=== PATIENT | male | born 1985 | race Caucasian/White ===

== ENCOUNTER 2016-11-13 14:11 | Emergency (ER) | payer OTHER ==
[2016-11-13] MEDS ORDERED: IBUPROFEN 800 MG TAB As Ordered ONE (14:54)
--- NOTE | 2016-11-13 15:26 | EDDOCDS ---
Physician Documentation [facility] Name: Osbaldo Leiva Age: 31 yrs Sex: Male : 1985 Arrival Date: 11/13/2016 Time: 14:11 Bed TR7 Private MD: Kiko Jensen Disposition: 11/13/16 15:12 Discharged to Home/Self Care. Impression: Acute pharyngitis. - Condition is Stable. - Discharge Instructions: Pharyngitis, Salt Water Gargle. - Prescriptions for Ibuprofen 600 mg Oral Tablet - take 1 tablet by ORAL route every 6 hours As needed take with food; 30 tablet. - Medication Reconciliation, Local Pharmacy Hours form. - Follow up: Kiko Jensen PA; When: As needed; Reason: Recheck today's complaints, Continuance of care. Follow up: Emergency Department; When: As needed; Reason: Fever > 102F, Trouble breathing. - Problem is new. - Symptoms are unchanged. Historical: - Allergies: No known drug Allergies; - Home Meds: 1. none - PMHx: none; - PSHx: none; - Social history: Smoking status: Patient states was never smoker of tobacco. No barriers to communication noted, The patient speaks fluent Bulgarian, Speaks appropriately for age. - Family history: Not pertinent. - : The pt / caregiver states he / she is not on anticoagulants. Home medication list is obtained from the patient. - Exposure Risk Screening:: None identified. Vital Signs: 11/13 14:13 BP 157 / 95; Pulse 97; Resp 16; Temp 97.6(O); Pulse Ox 98% ; Weight 145.15 kg / 320 cmb lbs; Height 6 ft. 1 in. (185.42 cm); Pain 8/10; 14:13 Body Mass Index 42.22 (145.15 kg, 185.42 cm) cmb MDM: 14:49 Strep Screen, Nursing ordered. ar2 14:49 Ibuprofen 800 mg PO once ordered. ar2 15:08 Financial registration complete. lg 15:12 GATS (NEGATIVE STREP SCREEN) Ordered. EDMS Administered Medications: 14:59 Drug: Ibuprofen 800 mg [ibuprofen 800 mg tablet (1 tabs)] Route: PO; jf3 Signatures: Dispatcher [employer] EDMS Nathan Hay, Nigel Reg Stepan Valdes, RN RN dy Yogesh Hutchins PA-C PA-C ar2 Linda Ely, RN RN ttb Robert Phan RN jf3 MTDD
--- NOTE | 2016-11-13 15:26 | EDDOCDS ---
Nurse's Notes [facility] Name: Osbaldo Leiva Age: 31 yrs Sex: Male : 1985 Arrival Date: 11/13/2016 Time: 14:11 Bed TR7 Private MD: Kiko Jensen Diagnosis: Acute pharyngitis Presentation: 11/13 14:18 Presenting complaint: Patient states: not feeling well yesterday then developed a sore dy throat and headache. painful to swallow. Risk factors: Stridor is not present. Drooling is not present. Shortness of breath is not present. Cellulitis is not present. Adult Sepsis Screening: The patient does not have new or worsening altered mentation. Patient's respiratory rate is less than 22. Systolic blood pressure is greater than 100. Patient has a qSOFA score of 0- Negative Sepsis Screen. Suicide/Homicide risk assessment- the patient denies having any suicidal and/or homicidal ideations and does not present with any other emotional, behavioral or mental health complaints. 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 Transition of care: patient was not received from another setting of care. 14:18 Acuity: NI Level 4 dy 14:18 Method Of Arrival: Walkin/Carried/Asstd dy Triage Assessment: 14:19 General: Appears in no apparent distress. Pain: Location: throat Pain currently is 8 dy out of 10 on a pain scale. Pt Declines HIV testing. EENT: Reports pain when swallowing. Historical: - Allergies: No known drug Allergies; - Home Meds: 1. none - PMHx: none; - PSHx: none; - Social history: Smoking status: Patient states was never smoker of tobacco. No barriers to communication noted, The patient speaks fluent Frisian, Speaks appropriately for age. - Family history: Not pertinent. - : The pt / caregiver states he / she is not on anticoagulants. Home medication list is obtained from the patient. - Exposure Risk Screening:: None identified. Screenin:24 Screening information is obtained from the patient. Fall risk: No risks identified. ttb Assistance ADL's: requires no assistance with activities of daily living. Abuse/DV Screen: The patient / caregiver reports he/she is: not in a situation that causes fear, pain or injury. Nutritional screening: No deficits noted. Advance Directives: Currently, there is no health care proxy. home support is adequate. Assessment: 15:24 General: Appears in no apparent distress, well nourished, well groomed, Behavior is ttb appropriate for age, cooperative, pleasant. Pain: Location: throat. Neurological: Level of Consciousness is awake, alert, Oriented to person, place, time. EENT: Throat is clear. Cardiovascular: Chest pain is denied. Respiratory: Airway is patent Respiratory effort is even, unlabored, Denies shortness of breath. GI: Denies nausea, vomiting. Derm: Skin is normal. Vital Signs: 14:13 BP 157 / 95; Pulse 97; Resp 16; Temp 97.6(O); Pulse Ox 98% ; Weight 145.15 kg; Height 6 cmb ft. 1 in. (185.42 cm); Pain 8/10; 14:13 Body Mass Index 42.22 (145.15 kg, 185.42 cm) cmb Vitals: 14:13 Log In Time: November 13, 2016 at 14:11. cmb ED Course: 14:12 Patient visited by Alethea Ghotra. cmb 14:12 Patient moved to Waiting cmb 14:13 Kiko Jensen PA is Private Physician. cmb 14:14 Patient moved to Pre RCE cmb 14:19 Triage Initiated dy 14:43 Patient moved to Triage 2 mlb1 14:46 [facility] ar2 14:46 Lillie Bertrand MD is Attending Physician. ar2 14:46 Patient visited by Yogesh Hutchins PA-C. ar2 15:12 Kiko Jensen PA is Referral Physician. ar2 15:23 Patient moved to TR7 ttb 15:24 The patient / caregiver is instructed regarding the plan of care and ED course. Patient ttb has correct armband on for positive identification. 15:24 GATS (NEGATIVE STREP SCREEN) Sent. ttb 15:24 No IV's were initiated during this patient's visit. No procedures done that require ttb assistance. Strep culture sent to lab. Administered Medications: 14:59 Drug: Ibuprofen 800 mg [ibuprofen 800 mg tablet (1 tabs)] Route: PO; jf3 Order Results: There are currently no results for this order. Outcome: 15:12 Discharge ordered by Provider. ar2 15:24 Discharge Assessment: Patient awake, alert and oriented x 3. No cognitive and/or ttb functional deficits noted. Patient verbalized understanding of disposition instructions. Patient awake and alert. patient administered narcotics - no. The following High Risk Discharge criteria are identified: None. Discharged to home ambulatory. Condition: good Condition: stable Condition: improved. Discharge instructions given to patient, Instructed on discharge instructions, follow up and referral plans. medication usage, Demonstrated understanding of instructions, medications, Pt was receptive of discharge instructions/ teaching. Prescriptions given X 1. No special radiology studies were completed. Property :Personal belongings accompany Pt. 15:25 Patient left the ED. ttb Signatures: Stepan Forde, RN RN dy Alec Sheets RN RN mlb1 Yogesh Hutchins PA-C PACasC ar2 Alethea Ghotra Teresa RN RN ttb Robert Phan,RN RN jf3 LEÓN
--- NOTE | 2016-11-15 16:26 | EDDOCDS ---
Physician Documentation [facility] Name: Osbaldo Leiva Age: 31 yrs Sex: Male : 1985 Arrival Date: 11/13/2016 Time: 14:11 Bed TR7 Private MD: Kiko Jensen Disposition: 11/13/16 15:12 Discharged to Home/Self Care. Impression: Acute pharyngitis. - Condition is Stable. - Discharge Instructions: Pharyngitis, Salt Water Gargle. - Prescriptions for Ibuprofen 600 mg Oral Tablet - take 1 tablet by ORAL route every 6 hours As needed take with food; 30 tablet. - Medication Reconciliation, Local Pharmacy Hours form. - Follow up: Kiko Jensen PA; When: As needed; Reason: Recheck today's complaints, Continuance of care. Follow up: Emergency Department; When: As needed; Reason: Fever > 102F, Trouble breathing. - Problem is new. - Symptoms are unchanged. Historical: - Allergies: No known drug Allergies; - Home Meds: 1. none - PMHx: none; - PSHx: none; - Social history: Smoking status: Patient states was never smoker of tobacco. No barriers to communication noted, The patient speaks fluent [place], Speaks appropriately for age. - Family history: Not pertinent. - : The pt / caregiver states he / she is not on anticoagulants. Home medication list is obtained from the patient. - Exposure Risk Screening:: None identified. Vital Signs: 11/13 14:13 BP 157 / 95; Pulse 97; Resp 16; Temp 97.6(O); Pulse Ox 98% ; Weight 145.15 kg / 320 cmb lbs; Height 6 ft. 1 in. (185.42 cm); Pain 8/10; 14:13 Body Mass Index 42.22 (145.15 kg, 185.42 cm) cmb MDM: 14:49 Strep Screen, Nursing ordered. ar2 14:49 Ibuprofen 800 mg PO once ordered. ar2 15:08 Financial registration complete. lg 15:12 GATS (NEGATIVE STREP SCREEN) Ordered. EDMS 11/14 07:47 [facility] Payment Agreement was scanned into [employer] and attached to record. lg 11:52 T-Sheet-- Draft Copy was scanned into [employer] and attached to record. gb Administered Medications: 11/13 14:59 Drug: Ibuprofen 800 mg [ibuprofen 800 mg tablet (1 tabs)] Route: PO; jf3 Signatures: Dispatcher [employer] EDAshlee Cueva, Reg Reg gb Nathan Hay, Reg Reg lg Stepan Forde, RN RN Yogesh Sánchez PA-C PA-C ar2 Conner, Teresa, RN RN ttb Robert Phan RN jf3 The chart was reviewed and I authenticate all verbal orders and agree with the evaluation and treatment provided.Attachments: 11/14 07:47 [facility] Payment Agreement lg 11:52 T-Sheet-- Draft Copy gb Chart Complete MTDD
--- NOTE | 2016-11-15 16:26 | EDDOCDS ---
Nurse's Notes [facility] Name: Osbaldo Leiva Age: 31 yrs Sex: Male : 1985 Arrival Date: 11/13/2016 Time: 14:11 Bed TR7 Private MD: Kiko Jensen Diagnosis: Acute pharyngitis Presentation: 11/13 14:18 Presenting complaint: Patient states: not feeling well yesterday then developed a sore dy throat and headache. painful to swallow. Risk factors: Stridor is not present. Drooling is not present. Shortness of breath is not present. Cellulitis is not present. Adult Sepsis Screening: The patient does not have new or worsening altered mentation. Patient's respiratory rate is less than 22. Systolic blood pressure is greater than 100. Patient has a qSOFA score of 0- Negative Sepsis Screen. Suicide/Homicide risk assessment- the patient denies having any suicidal and/or homicidal ideations and does not present with any other emotional, behavioral or mental health complaints. 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 Transition of care: patient was not received from another setting of care. 14:18 Acuity: NI Level 4 dy 14:18 Method Of Arrival: Walkin/Carried/Asstd dy Triage Assessment: 14:19 General: Appears in no apparent distress. Pain: Location: throat Pain currently is 8 dy out of 10 on a pain scale. Pt Declines HIV testing. EENT: Reports pain when swallowing. Historical: - Allergies: No known drug Allergies; - Home Meds: 1. none - PMHx: none; - PSHx: none; - Social history: Smoking status: Patient states was never smoker of tobacco. No barriers to communication noted, The patient speaks fluent Georgian, Speaks appropriately for age. - Family history: Not pertinent. - : The pt / caregiver states he / she is not on anticoagulants. Home medication list is obtained from the patient. - Exposure Risk Screening:: None identified. Screenin:24 Screening information is obtained from the patient. Fall risk: No risks identified. ttb Assistance ADL's: requires no assistance with activities of daily living. Abuse/DV Screen: The patient / caregiver reports he/she is: not in a situation that causes fear, pain or injury. Nutritional screening: No deficits noted. Advance Directives: Currently, there is no health care proxy. home support is adequate. Assessment: 15:24 General: Appears in no apparent distress, well nourished, well groomed, Behavior is ttb appropriate for age, cooperative, pleasant. Pain: Location: throat. Neurological: Level of Consciousness is awake, alert, Oriented to person, place, time. EENT: Throat is clear. Cardiovascular: Chest pain is denied. Respiratory: Airway is patent Respiratory effort is even, unlabored, Denies shortness of breath. GI: Denies nausea, vomiting. Derm: Skin is normal. Vital Signs: 14:13 BP 157 / 95; Pulse 97; Resp 16; Temp 97.6(O); Pulse Ox 98% ; Weight 145.15 kg; Height 6 cmb ft. 1 in. (185.42 cm); Pain 8/10; 14:13 Body Mass Index 42.22 (145.15 kg, 185.42 cm) cmb Vitals: 14:13 Log In Time: November 13, 2016 at 14:11. cmb ED Course: 14:12 Patient visited by Alethea Ghotra. cmb 14:12 Patient moved to Waiting cmb 14:13 Kiko Jensen PA is Private Physician. cmb 14:14 Patient moved to Pre RCE cmb 14:19 Triage Initiated dy 14:43 Patient moved to Triage 2 mlb1 14:46 [facility] ar2 14:46 Lillie Bertrand MD is Attending Physician. ar2 14:46 Patient visited by Yogesh Hutchins PA-C. ar2 15:12 Kiko Jensen PA is Referral Physician. ar2 15:23 Patient moved to TR7 ttb 15:24 The patient / caregiver is instructed regarding the plan of care and ED course. Patient ttb has correct armband on for positive identification. 15:24 GATS (NEGATIVE STREP SCREEN) Sent. ttb 15:24 No IV's were initiated during this patient's visit. No procedures done that require ttb assistance. Strep culture sent to lab. 11/14 07:47 [facility] Payment Agreement was scanned into [employer] and attached to record. lg 11:52 T-Sheet-- Draft Copy was scanned into [employer] and attached to record. gb Administered Medications: 11/13 14:59 Drug: Ibuprofen 800 mg [ibuprofen 800 mg tablet (1 tabs)] Route: PO; jf3 Order Results: Lab Order: GATS (NEGATIVE STREP SCREEN); SPEC'M 11/13/16 15:18 Test: GATS CULTURE (NEG STREP SCR); Value: GATS RESULT NEGATIVE FOR STREP PYOGENES (GROUP A); Status: F Outcome: 15:12 Discharge ordered by Provider. ar2 15:24 Discharge Assessment: Patient awake, alert and oriented x 3. No cognitive and/or ttb functional deficits noted. Patient verbalized understanding of disposition instructions. Patient awake and alert. patient administered narcotics - no. The following High Risk Discharge criteria are identified: None. Discharged to home ambulatory. Condition: good Condition: stable Condition: improved. Discharge instructions given to patient, Instructed on discharge instructions, follow up and referral plans. medication usage, Demonstrated understanding of instructions, medications, Pt was receptive of discharge instructions/ teaching. Prescriptions given X 1. No special radiology studies were completed. Property :Personal belongings accompany Pt. 15:25 Patient left the ED. ttb Signatures: Ashlee Gomez, Reg Reg gb Nathan Hay, Reg Reg lg Stepan Forde RN RN Alec Pathak RN RN mlb1 Yogesh Hutchins PA-C PA-Reyes ar2 Alethea Ghotra Teresa, RN RN ttb Robert Phan RN RN jf3 Chart Complete MTDD
--- NOTE | 2016-11-15 16:26 | EDDOCDS ---
Physician Documentation [facility] Name: Osbaldo Leiva Age: 31 yrs Sex: Male : 1985 Arrival Date: 11/13/2016 Time: 14:11 Bed TR7 Private MD: Kiko Jensen Disposition: 11/13/16 15:12 Discharged to Home/Self Care. Impression: Acute pharyngitis. - Condition is Stable. - Discharge Instructions: Pharyngitis, Salt Water Gargle. - Prescriptions for Ibuprofen 600 mg Oral Tablet - take 1 tablet by ORAL route every 6 hours As needed take with food; 30 tablet. - Medication Reconciliation, Local Pharmacy Hours form. - Follow up: Kiko Jensen PA; When: As needed; Reason: Recheck today's complaints, Continuance of care. Follow up: Emergency Department; When: As needed; Reason: Fever > 102F, Trouble breathing. - Problem is new. - Symptoms are unchanged. Historical: - Allergies: No known drug Allergies; - Home Meds: 1. none - PMHx: none; - PSHx: none; - Social history: Smoking status: Patient states was never smoker of tobacco. No barriers to communication noted, The patient speaks fluent Maldivian, Speaks appropriately for age. - Family history: Not pertinent. - : The pt / caregiver states he / she is not on anticoagulants. Home medication list is obtained from the patient. - Exposure Risk Screening:: None identified. Vital Signs: 11/13 14:13 BP 157 / 95; Pulse 97; Resp 16; Temp 97.6(O); Pulse Ox 98% ; Weight 145.15 kg / 320 cmb lbs; Height 6 ft. 1 in. (185.42 cm); Pain 8/10; 14:13 Body Mass Index 42.22 (145.15 kg, 185.42 cm) cmb MDM: 14:49 Strep Screen, Nursing ordered. ar2 14:49 Ibuprofen 800 mg PO once ordered. ar2 15:08 Financial registration complete. lg 15:12 GATS (NEGATIVE STREP SCREEN) Ordered. EDMS 11/14 07:47 [facility] Payment Agreement was scanned into [employer] and attached to record. lg 11:52 T-Sheet-- Draft Copy was scanned into [employer] and attached to record. gb Administered Medications: 11/13 14:59 Drug: Ibuprofen 800 mg [ibuprofen 800 mg tablet (1 tabs)] Route: PO; jf3 Signatures: Dispatcher [employer] EDAshlee Cueva, Reg Reg gb Nathan Hay, Reg Reg lg Stepan Forde, RN RN Yogesh Sánchez PA-C PA-C ar2 Conner, Teresa, RN RN ttb Robert Phan RN jf3 The chart was reviewed and I authenticate all verbal orders and agree with the evaluation and treatment provided.Attachments: 11/14 07:47 [facility] Payment Agreement lg 11:52 T-Sheet-- Draft Copy gb Chart Complete MTDD
== END 2016-11-13 15:25 | disposition home or self-care (01) ==
LOC: M ED 14:11
DX: J02.9 Acute pharyngitis, unspecified (principal)

== ENCOUNTER 2017-01-16 15:57 | Emergency (ER) | payer OTHER ==
[~2017-01-16] VITALS: Ht 185.4 cm; Wt 145.1 kg
[2017-01-16] MEDS ORDERED: IBUP-1114 PO (16:19)
[2017-01-16] MEDS ORDERED: TIZA2CAP3 (16:21)
[2017-01-16] MEDS ORDERED: KETOROLAC 30 MG/ML VIAL (J1885) IM ONE (19:15)
[2017-01-16 20:55] VITALS: BP 138/84
[2017-01-16] MEDS ORDERED: MOBI7.5T10 PO (21:00)
[2017-01-16] MEDS ORDERED: ZANA4TAB PO (21:01)
--- NOTE | 2017-01-16 21:06 | REP ---
LUMBOSACRAL SPINE: HISTORY: Pain after trauma. COMPARISON: 07/12/2014 FINDINGS: Five views of the lumbosacral spine show no acute fracture, dislocation or subluxation. The intervertebral disc spaces are symmetric and well maintained. There is no spondylolisthesis. The pedicles are intact bilaterally and there is no destructive osseous lesions. IMPRESSION: Unremarkable lumbosacral spine series. There has been no significant change from the prior exam. Signed by Efraín Kidd DO 01/17/2017 11:44 A
== END 2017-01-16 21:09 | disposition home or self-care (01) ==
LOC: M ED 19:38
DX: M54.5 Low back pain (principal)
CPT/HCPCS: 72110; 96372; 99282; J1885

== ENCOUNTER 2017-02-26 08:33 | Outpatient (RCR) | payer OTHER ==
[~2017-02-26 08:33] MED LIST: IBUP-1114 PO; MOBI7.5T10 PO; TIZA2CAP3; ZANA4TAB PO
== END 2017-03-02 ==
LOC: M PT 08:33
PROVIDERS: ATTEND Nurse Practitioner Family
DX: Z51.89 Encounter for other specified aftercare (principal); M54.5 Low back pain

== ENCOUNTER 2017-03-04 10:27 | Emergency (ER) | payer OTHER ==
[~2017-03-04] VITALS: Ht 185.4 cm; Wt 149.7 kg
[2017-03-04 10:27] VITALS: BP 155/92
[2017-03-04] MEDS ORDERED: INDO25CA PO (10:38)
[2017-03-04] MEDS ORDERED: ROBA500T PO (10:38)
[2017-03-04] MEDS ORDERED: PERC5TAB6 PO (10:38)
[2017-03-04] MEDS ORDERED: VALI5TAB PO (10:38)
[2017-03-04] MEDS ORDERED: PERCOCET 5MG/325MG TAB PO ONE (10:45)
== END 2017-03-04 11:00 | disposition home or self-care (01) ==
LOC: M ED 10:59
DX: M51.26 Other intervertebral disc displacement, lumbar region (principal); M51.36 Other intervertebral disc degeneration, lumbar region; G47.33 Obstructive sleep apnea (adult) (pediatric)

== ENCOUNTER 2017-04-01 09:07 | Outpatient (RCR) | payer OTHER ==
[~2017-04-01 09:07] MED LIST changes: +INDO25CA PO; +PERC5TAB6 PO; +ROBA500T PO; +VALI5TAB PO
== END 2017-04-02 ==
LOC: M PT 09:07
PROVIDERS: ATTEND Nurse Practitioner Family
DX: Z51.89 Encounter for other specified aftercare (principal); M54.5 Low back pain

== ENCOUNTER 2017-04-03 09:05 | Outpatient (RCR) | payer OTHER ==
[~2017-04-03 09:05] MED LIST changes: +MOBI4TAB PO; -MOBI7.5T10 PO; +PERC5TAB12 PO; -PERC5TAB6 PO
== END 2017-05-02 | disposition home or self-care (01) ==
LOC: M PT 09:05
PROVIDERS: ATTEND Nurse Practitioner Family
DX: Z51.89 Encounter for other specified aftercare (principal); M54.5 Low back pain

== ENCOUNTER 2017-06-10 12:33 | Emergency (ER) | payer MEDICAID, OTHER, SELFPAY ==
[~2017-06-10] VITALS: Ht 185.4 cm; Wt 162.2 kg
[2017-06-10 14:14] LABS: BASO # 0.1 K/mm3 (0.0-0.2); BASO % 0.8 % (0.0-1.0); EOS # 0.2 K/mm3 (0.0-0.50); EOS % 2.5 % (0.0-3.0); LARGE UNSTAINED CELL # 0.2 K/mm3 (0.0-0.4); LARGE UNSTAINED CELL % 2.4 % (0.0-4.0); LYMPH # 3.6 K/mm3 (1.5-6.5); LYMPH % 38.4 % (24.0-44.0); MEAN CORPUSCULAR HEMOGLOBIN 28.1 pg (27.0-33.0); MEAN CORPUSCULAR HGB CONC 33.9 g/dl (32.0-36.5); MEAN CORPUSCULAR VOLUME 82.9 fl (80.0-96.0); MONO # 0.6 K/mm3 (0.0-0.8); NEUTROPHILS # 4.3 K/mm3 (1.8-7.7); PLATELET COUNT, AUTOMATED 219 k/mm3 (150-450); RED CELL DISTRIBUTION WIDTH 12.8 % (11.5-14.5); WHITE BLOOD COUNT 8.7 K/mm3 (4.0-10.0)
--- NOTE | 2017-06-10 14:29 | REP ---
Chest PA and lateral views: Comparison is a 2014. The lung brothers are clear. The cardiac size is normal The diaz, mediastinum, and bony thorax are unremarkable. Impression: Negative PA and lateral chest. There is no interval change. Signed by Melvin Weeks MD 06/10/2017 02:20 P
[2017-06-10 14:39] LABS: ANION GAP 8 MEQ/L (8-16); BLOOD UREA NITROGEN 11 MG/DL (7-18); CALCIUM LEVEL 9.5 MG/DL (8.5-10.1); CARBON DIOXIDE LEVEL 26 MEQ/L (21-32); CHLORIDE LEVEL 105 MEQ/L (98-107); CREATININE FOR GFR 0.76 MG/DL (0.70-1.30); GLOMERULAR FILTRATION RATE > 60.0 (>60); GLUCOSE, FASTING 104 MG/DL (70-105); POTASSIUM SERUM 4.2 MEQ/L (3.5-5.1); SODIUM LEVEL 139 MEQ/L (136-145)
[2017-06-10] MEDS ORDERED: LORA10CA PO (15:18)
[2017-06-10] MEDS ORDERED: FLON1SPR (15:18)
[2017-06-10 15:26] VITALS: BP 132/90
--- NOTE | 2017-06-11 20:10 | ECGEPIP ---
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
== END 2017-06-10 15:30 | disposition home or self-care (01) ==
LOC: M ED 12:33
DX: J30.9 Allergic rhinitis, unspecified (principal); G47.30 Sleep apnea, unspecified

== ENCOUNTER 2017-11-26 08:51 | Emergency (ER) | payer OTHER | END 2017-11-26 09:41 | disposition home or self-care (01) | LOC: M ED 08:51 | DX: R05 Cough (principal); G47.33 Obstructive sleep apnea (adult) (pediatric); M54.5 Low back pain | CPT/HCPCS: 99282 ==

== ENCOUNTER 2017-12-29 16:03 | Emergency (ER) | payer OTHER ==
[2017-12-29] MEDS: NS 1,000 ML IV (16:30)
[2017-12-29] MEDS: METOCLOPRAMIDE INJ 10MG/2ML VIAL (J2765) IV (16:51)
[2017-12-29] MEDS: KETOROLAC 30 MG/ML VIAL (J1885) IV (16:51)
[2017-12-29] MEDS: diphenhydrAMINE INJ 50MG/ML VIAL (J1200) IV (16:52)
== END 2017-12-29 19:03 | disposition home or self-care (01) ==
LOC: M ED 16:03
DX: G44.209 Tension-type headache, unspecified, not intractable (principal); G47.30 Sleep apnea, unspecified
CPT/HCPCS: J1200

== ENCOUNTER → 2018-04-09 | Outpatient (CLI) | payer OTHER | LOC: M SLEEP HO 13:04 | DX: G47.30 Sleep apnea, unspecified (principal) | CPT/HCPCS: G0399 ==

== ENCOUNTER 2018-05-22 11:42 | Emergency (ER) | payer MEDICAID, SELFPAY, OTHER ==
[2018-05-22] MEDS: ONDANSETRON 4MG/2ML VIAL (J2405) IV (12:38)
[2018-05-22] MEDS: KETOROLAC 30 MG/ML VIAL (J1885) IV (12:38)
[2018-05-22] MEDS: NS 1,000 ML IV (12:38)
[2018-05-22 12:43] LABS: BASO # 0.1 10^3/uL (0.0-0.2); BASO % 0.7 % (0.0-1.0); EOS # 0.1 10^3/uL (0.0-0.50); EOS % 1.9 % (0.0-3.0); HEMATOCRIT 46.6 % (42.0-52.0); HEMOGLOBIN 15.2 g/dl (13.5-17.5); IMMATURE GRANULOCYTE % 0.3 % (0-3.0); LYMPH # 2.7 10^3/uL (1.5-4.5); LYMPH % 36.8 % (24.0-44.0); MEAN CORPUSCULAR HEMOGLOBIN 27.7 pg (27.0-33.0); MEAN CORPUSCULAR HGB CONC 32.6 g/dl (32.0-36.5); MONO # 0.7 10^3/uL (0.0-0.8); MONO % 9.2 % (0.0-5.0); NEUTROPHILS # 3.8 10^3/uL (1.8-7.7); NEUTROPHILS % 51.1 % (36.0-66.0); PLATELET COUNT, AUTOMATED 250 10^3/uL (150-450); RED BLOOD COUNT 5.48 10^6/uL (4.30-6.10); RED CELL DISTRIBUTION WIDTH 12.5 % (11.5-14.5); WHITE BLOOD COUNT 7.4 10^3/uL (4.0-10.0)
[2018-05-22 12:47] LABS: KETONE, URINE AUTO RFX NEGATIVE (NEGATIVE); LEUKOCYTE ESTERASE UR AUTO RFX NEGATIVE (NEGATIVE); MUCUS, URINE RFX SMALL (NEGATIVE); NITRITE, URINE AUTO RFX NEGATIVE (NEGATIVE); RBC, URINE AUTO RFX 169 /HPF (0-3); SPECIFIC GRAVITY UR AUTO RFX 1.026 (1.002-1.035); SQUAM EPITHELIAL CELL UR AURFX 0 /HPF (0-6); WBC, URINE AUTO RFX 2 /HPF (0-3)
[2018-05-22 13:03] LABS: ALBUMIN 4.1 GM/DL (3.2-5.2); ALBUMIN/GLOBULIN RATIO 0.95 (1.00-1.93); ALKALINE PHOSPHATASE 67 U/L (45-117); ALT/SGPT 60 U/L (12-78); ANION GAP 7 MEQ/L (8-16); AST/SGOT 32 U/L (7-37); BILIRUBIN,DIRECT 0.2 MG/DL (0.0-0.2); BILIRUBIN,TOTAL 0.6 MG/DL (0.2-1.0); BLOOD UREA NITROGEN 14 MG/DL (7-18); CALCIUM LEVEL 9.8 MG/DL (8.5-10.1); CARBON DIOXIDE LEVEL 29 MEQ/L (21-32); CHLORIDE LEVEL 106 MEQ/L (98-107); GLOMERULAR FILTRATION RATE > 60.0 (>60); GLUCOSE, FASTING 101 MG/DL (70-100); LIPASE 208 U/L (73-393); POTASSIUM SERUM 4.2 MEQ/L (3.5-5.1); SODIUM LEVEL 142 MEQ/L (136-145); TOTAL PROTEIN 8.4 GM/DL (6.4-8.2)
== END 2018-05-22 14:05 | disposition home or self-care (01) ==
LOC: M ED 11:42
DX: R10.9 Unspecified abdominal pain (principal); N20.0 Calculus of kidney; M54.9 Dorsalgia, unspecified; Z87.442 Personal history of urinary calculi
CPT/HCPCS: J2405

== ENCOUNTER 2018-09-23 23:16 | Emergency (ER) | payer OTHER, SELFPAY ==
[2018-09-24 00:09] LABS: KETONE, URINE AUTO RFX NEGATIVE (NEGATIVE); LEUKOCYTE ESTERASE UR AUTO RFX NEGATIVE (NEGATIVE); NITRITE, URINE AUTO RFX NEGATIVE (NEGATIVE); RBC, URINE AUTO RFX TNTC /HPF (0-3); SPECIFIC GRAVITY UR AUTO RFX 1.024 (1.002-1.035); SQUAM EPITHELIAL CELL UR AURFX 0 /HPF (0-6); WBC, URINE AUTO RFX 5 /HPF (0-3)
[2018-09-24 00:15] LABS: INR 0.91; PROTHROMBIN TIME 12.4 SECONDS (12.1-14.4)
[2018-09-24 00:25] LABS: BASO % 0.4 % (0.0-1.0); EOS # 0.1 10^3/uL (0.0-0.50); EOS % 1.3 % (0.0-3.0); HEMATOCRIT 42.9 % (42.0-52.0); HEMOGLOBIN 14.2 g/dl (13.5-17.5); IMMATURE GRANULOCYTE % 0.3 % (0-3.0); LYMPH # 3.4 10^3/uL (1.5-4.5); LYMPH % 34.3 % (24.0-44.0); MEAN CORPUSCULAR HEMOGLOBIN 27.7 pg (27.0-33.0); MEAN CORPUSCULAR HGB CONC 33.1 g/dl (32.0-36.5); MEAN CORPUSCULAR VOLUME 83.8 fl (80.0-96.0); MONO # 0.7 10^3/uL (0.0-0.8); MONO % 7.5 % (0.0-5.0); NEUTROPHILS # 5.6 10^3/uL (1.8-7.7); NEUTROPHILS % 56.2 % (36.0-66.0); PLATELET COUNT, AUTOMATED 245 10^3/uL (150-450); RED BLOOD COUNT 5.12 10^6/uL (4.30-6.10); RED CELL DISTRIBUTION WIDTH 12.3 % (11.5-14.5); WHITE BLOOD COUNT 9.9 10^3/uL (4.0-10.0)
[2018-09-24 00:26] LABS: ALBUMIN 3.9 GM/DL (3.2-5.2); ALBUMIN/GLOBULIN RATIO 1.22 (1.00-1.93); ALKALINE PHOSPHATASE 64 U/L (45-117); ALT/SGPT 48 U/L (12-78); ANION GAP 6 MEQ/L (8-16); AST/SGOT 24 U/L (7-37); BILIRUBIN,DIRECT < 0.1 MG/DL (0.0-0.2); BILIRUBIN,TOTAL 0.3 MG/DL (0.2-1.0); BLOOD UREA NITROGEN 15 MG/DL (7-18); CALCIUM LEVEL 8.7 MG/DL (8.5-10.1); CARBON DIOXIDE LEVEL 28 MEQ/L (21-32); CHLORIDE LEVEL 105 MEQ/L (98-107); CREATININE FOR GFR 0.77 MG/DL (0.70-1.30); GLOMERULAR FILTRATION RATE > 60.0 (>60); GLUCOSE, FASTING 108 MG/DL (70-100); POTASSIUM SERUM 4.2 MEQ/L (3.5-5.1); SODIUM LEVEL 139 MEQ/L (136-145); TOTAL PROTEIN 7.1 GM/DL (6.4-8.2)
== END 2018-09-24 01:34 | disposition home or self-care (01) ==
LOC: M ED 09-24 01:34
DX: R31.9 Hematuria, unspecified (principal); N20.1 Calculus of ureter; Z87.442 Personal history of urinary calculi; M54.9 Dorsalgia, unspecified; Z79.899 Other long term (current) drug therapy
CPT/HCPCS: 74176

== ENCOUNTER 2018-09-27 16:52 | Emergency (ER) | payer OTHER ==
[2018-09-27 17:41] LABS: BASO % 0.3 % (0.0-1.0); EOS # 0.1 10^3/uL (0.0-0.50); HEMATOCRIT 44.6 % (42.0-52.0); HEMOGLOBIN 14.6 g/dl (13.5-17.5); IMMATURE GRANULOCYTE % 0.3 % (0-3.0); LYMPH # 2.7 10^3/uL (1.5-4.5); LYMPH % 25.8 % (24.0-44.0); MEAN CORPUSCULAR HEMOGLOBIN 27.4 pg (27.0-33.0); MEAN CORPUSCULAR HGB CONC 32.7 g/dl (32.0-36.5); MEAN CORPUSCULAR VOLUME 83.7 fl (80.0-96.0); MONO # 0.8 10^3/uL (0.0-0.8); NEUTROPHILS % 65.6 % (36.0-66.0); PLATELET COUNT, AUTOMATED 265 10^3/uL (150-450); RED BLOOD COUNT 5.33 10^6/uL (4.30-6.10); RED CELL DISTRIBUTION WIDTH 12.5 % (11.5-14.5); WHITE BLOOD COUNT 10.6 10^3/uL (4.0-10.0)
[2018-09-27] MEDS: ONDANSETRON 4MG/2ML VIAL (J2405) IV (17:43)
[2018-09-27] MEDS: KETOROLAC 30 MG/ML VIAL (J1885) IV (17:43)
[2018-09-27] MEDS: NS 1,000 ML IV (17:43)
[2018-09-27] MEDS: TAMSULOSIN 0.4 MG CAP PO (17:43)
[2018-09-27 17:47] LABS: KETONE, URINE AUTO RFX NEGATIVE (NEGATIVE); LEUKOCYTE ESTERASE UR AUTO RFX NEGATIVE (NEGATIVE); MUCUS, URINE RFX SMALL (NEGATIVE); NITRITE, URINE AUTO RFX NEGATIVE (NEGATIVE); RBC, URINE AUTO RFX 10 /HPF (0-3); SPECIFIC GRAVITY UR AUTO RFX 1.026 (1.002-1.035); SQUAM EPITHELIAL CELL UR AURFX 0 /HPF (0-6); WBC, URINE AUTO RFX 2 /HPF (0-3)
[2018-09-27 18:08] LABS: ALBUMIN 4.1 GM/DL (3.2-5.2); ALBUMIN/GLOBULIN RATIO 1.28 (1.00-1.93); ALKALINE PHOSPHATASE 68 U/L (45-117); ALT/SGPT 47 U/L (12-78); ANION GAP 8 MEQ/L (8-16); AST/SGOT 26 U/L (7-37); BILIRUBIN,DIRECT 0.1 MG/DL (0.0-0.2); BILIRUBIN,TOTAL 0.4 MG/DL (0.2-1.0); BLOOD UREA NITROGEN 15 MG/DL (7-18); CALCIUM LEVEL 8.8 MG/DL (8.5-10.1); CARBON DIOXIDE LEVEL 25 MEQ/L (21-32); CHLORIDE LEVEL 106 MEQ/L (98-107); CREATININE FOR GFR 0.97 MG/DL (0.70-1.30); GLOMERULAR FILTRATION RATE > 60.0 (>60); GLUCOSE, FASTING 106 MG/DL (70-100); LIPASE 277 U/L (73-393); POTASSIUM SERUM 4.4 MEQ/L (3.5-5.1); SODIUM LEVEL 139 MEQ/L (136-145); TOTAL PROTEIN 7.3 GM/DL (6.4-8.2)
[2018-09-27] MEDS: MORPHINE 4 MG/ML 1ML VIAL/SYRINGE (J2270) IV (18:12)
== END 2018-09-27 18:59 | disposition home or self-care (01) ==
LOC: M ED 16:52
DX: R10.9 Unspecified abdominal pain (principal)
CPT/HCPCS: J2270

== ENCOUNTER → 2018-09-30 | Outpatient (REF) | payer OTHER ==
[2018-09-30 18:13] LABS: APPEARANCE, URINE CLEAR (CLEAR); BACTERIA, URINE AUTO NEGATIVE (NEGATIVE); BILIRUBIN, URINE AUTO NEGATIVE (NEGATIVE); BLOOD, URINE BLOOD NEGATIVE (NEGATIVE); COLOR, URINE YELLOW (YELLOW); GLUCOSE, URINE (UA) AUTO NEGATIVE (NEGATIVE); KETONE, URINE AUTO NEGATIVE (NEGATIVE); LEUKOCYTE ESTERASE, URINE AUTO NEGATIVE (NEGATIVE); MUCUS, URINE SMALL (NEGATIVE); NITRITE, URINE AUTO NEGATIVE (NEGATIVE); PROTEIN, URINE AUTO NEGATIVE (NEGATIVE); RBC, URINE AUTO 14 /HPF (0-3); SPECIFIC GRAVITY URINE AUTO 1.021 (1.002-1.035); SQUAMOUS EPITHELIAL CELL UR AU 0 /HPF (0-6); WBC, URINE AUTO 1 /HPF (0-3)
== END ==
LOC: M SMT 17:15
DX: N20.0 Calculus of kidney (principal)
CPT/HCPCS: 81001

== ENCOUNTER 2019-07-20 01:41 | Emergency (ER) | payer OTHER, SELFPAY ==
[~2019-07-20] VITALS: Ht 185.4 cm; Wt 136.4 kg
[~2019-07-20 01:41] MED LIST changes: +FLOM0.4C39 PO; +FLON1SPR; +HYDR-3715 PO; +INDO-16 PO; -INDO25CA PO; +LORA10CA PO; +NAPR-837 PO; +TESS100C PO; +TIZA2CAP; -TIZA2CAP3; +ZITHTAB PO; +ZOFR4TAB14 PO
[2019-07-20 01:42] VITALS: BP 141/85
[2019-07-20] MEDS ORDERED: ONDANSETRON 4MG/2ML VIAL (J2405) As Ordered ONE (02:01)
[2019-07-20] MEDS ORDERED: KETOROLAC 30 MG/ML VIAL (J1885) As Ordered ONE (02:01)
[2019-07-20 02:04] LABS: BASO # 0.1 10^3/uL (0.0-0.2); BASO % 0.6 % (0.0-1.0); EOS # 0.2 10^3/uL (0.0-0.5); EOS % 1.6 % (0.0-3.0); HEMATOCRIT 45.4 % (42.0-52.0); HEMOGLOBIN 14.7 g/dl (13.5-17.5); LYMPH % 39.8 % (24.0-44.0); MEAN CORPUSCULAR HEMOGLOBIN 27.6 pg (27.0-33.0); MEAN CORPUSCULAR HGB CONC 32.4 g/dl (32.0-36.5); MEAN CORPUSCULAR VOLUME 85.3 fl (80.0-96.0); MONO # 1.1 10^3/uL (0.0-0.8); MONO % 10.8 % (0.0-5.0); NEUTROPHILS # 4.7 10^3/uL (1.5-8.5); NEUTROPHILS % 46.8 % (36.0-66.0); PLATELET COUNT, AUTOMATED 229 10^3/uL (150-450); RED BLOOD COUNT 5.32 10^6/uL (4.30-6.10)
[2019-07-20] MEDS ORDERED: ONDANSETRON 4MG/2ML VIAL (J2405) IV ONE (02:15)
[2019-07-20] MEDS ORDERED: KETOROLAC 30 MG/ML VIAL (J1885) IV ONE (02:15)
[2019-07-20] MEDS ORDERED: NS 1,000 ML IV ONE (02:15)
[2019-07-20 02:38] LABS: ALBUMIN 3.9 GM/DL (3.2-5.2); ALT/SGPT 79 U/L (12-78); BILIRUBIN,DIRECT < 0.1 MG/DL (0.0-0.2); BILIRUBIN,TOTAL 0.3 MG/DL (0.2-1.0); BLOOD UREA NITROGEN 13 MG/DL (7-18); CALCIUM LEVEL 8.9 MG/DL (8.5-10.1); CARBON DIOXIDE LEVEL 30 MEQ/L (21-32); CHLORIDE LEVEL 107 MEQ/L (98-107); CREATININE FOR GFR 0.81 MG/DL (0.70-1.30); GLOMERULAR FILTRATION RATE > 60.0 (>60); GLUCOSE, FASTING 113 MG/DL (70-100); LIPASE 282 U/L (73-393); POTASSIUM SERUM 4.1 MEQ/L (3.5-5.1); SODIUM LEVEL 144 MEQ/L (136-145); TOTAL PROTEIN 7.2 GM/DL (6.4-8.2)
--- NOTE | 2019-07-20 03:14 | REPVR ---
EXAM: CT Abdomen and Pelvis Without Contrast EXAM DATE/TIME: 07/20/2019 2:13 AM CLINICAL HISTORY: 34 years old, male; Abdominal pain; Flank; Right; Additional info: R colic TECHNIQUE: Imaging protocol: Computed tomography of the abdomen and pelvis without contrast. Radiation optimization: All CT scans at this facility use at least one of these dose optimization techniques: automated exposure control; mA and/or kV adjustment per patient size (includes targeted exams where dose is matched to clinical indication); or iterative reconstruction. COMPARISON: CT ABD PELVIS W/O CONTRAST 09/27/2018 5:31 PM FINDINGS: Liver: Normal. No mass. Gallbladder and bile ducts: Normal. No calcified stones. No ductal dilation. Pancreas: Normal. No ductal dilation. Spleen: Normal. No splenomegaly. Adrenals: Normal. No mass. Kidneys and ureters: Posterior protrusion of L4-L5 with paracentral osteophytes minimal right hydronephrosis and hydroureter which extends to a 1-2 mm distal right ureteral calculus approximately 15 mm above the right UVJ. Stomach and bowel: Minimal sigmoid diverticulosis without diverticulitis. Appendix: A normal small appendix is seen. Intraperitoneal space: Unremarkable. No free air. No significant fluid collection. Vasculature: Unremarkable. No abdominal aortic aneurysm. Lymph nodes: Unremarkable. No enlarged lymph nodes. Bladder: Unremarkable as visualized. Reproductive: Unremarkable as visualized. Bones/joints: Unremarkable. No acute fracture. Soft tissues: Unremarkable. IMPRESSION: 1. Distal right ureteral calculus measuring 1-2 mm approximately 15 mm above the right UVJ with minimal obstructive uropathy of the right upper tract. 2. Minimal sigmoid diverticulosis without diverticulitis. 3. Resolution of left ureteral calculus and obstructive uropathy since 09/27/2018. Electronically signed by: Buck Anguiano On 07/20/2019 03:13:56 AM
[2019-07-20] MEDS ORDERED: TAMSULOSIN 0.4 MG CAP PO ONE (03:30)
[2019-07-20] MEDS ORDERED: MORPHINE 4 MG/ML 1ML VIAL/SYRINGE (J2270) IV ONE (04:00)
== END 2019-07-20 04:56 | disposition home or self-care (01) ==
LOC: M ED 01:41
DX: N20.1 Calculus of ureter (principal); K57.30 Diverticulosis of large intestine without perforation or abscess without bleeding; Z87.442 Personal history of urinary calculi
CPT/HCPCS: 74176; 80048; 80076; 81001; 83690; 85025; 96361; 96374; 96375; 99284; J1885; J2270; J2405

== ENCOUNTER 2019-10-26 11:21 | Emergency (ER) | payer MEDICAID, SELFPAY ==
[~2019-10-26] VITALS: Ht 185.4 cm; Wt 153.8 kg
[2019-10-26] MEDS ORDERED: ACET-683 PO (11:27)
[2019-10-26] MEDS ORDERED: ONDANSETRON 4 MG ORAL DISINTEGRATING TAB (Q0162 PER 1MG) PO ONE (12:00)
[2019-10-26] MEDS ORDERED: KETOROLAC 60 MG/2 ML VIAL (J1885) IM ONE (12:00)
[2019-10-26 13:23] VITALS: BP 134/80
[2019-10-26] MEDS ORDERED: ONDA4TAB6 PO (13:24)
[2019-10-26] MEDS ORDERED: KETO10TAB PO (13:24)
== END 2019-10-26 13:32 | disposition home or self-care (01) ==
LOC: M ED 11:21
DX: G43.909 Migraine, unspecified, not intractable, without status migrainosus (principal)
CPT/HCPCS: 96372; 99283; J1885; Q0162

== ENCOUNTER 2020-01-20 18:43 | Emergency (ER) | payer MEDICAID, OTHER ==
[~2020-01-20] VITALS: Ht 185.4 cm; Wt 160.3 kg
[~2020-01-20 18:43] MED LIST changes: +ACET-683 PO; +KETO10TAB PO; +ONDA4TAB6 PO
[2020-01-20] MEDS ORDERED: KETOROLAC TROMETHAMINE 10 MG TAB PO ONE (19:15)
[2020-01-20 20:03] VITALS: BP 147/89
--- NOTE | 2020-01-20 20:09 | REP ---
RIGHT RIB SERIES: Four views of the right ribs are performed and demonstrate no fracture or bone lesion. A PA view of the chest demonstrates no infiltrate, pneumothorax, or pleural effusion. Heart and mediastinum are within normal limits. IMPRESSION: Negative right rib series. Electronically Signed by Melvin Wild MD 01/21/2020 09:04 A
== END 2020-01-20 20:04 | disposition home or self-care (01) ==
LOC: M ED 18:43
DX: S29.011A Strain of muscle and tendon of front wall of thorax, initial encounter (principal); X58.XXXA Exposure to other specified factors, initial encounter; G47.30 Sleep apnea, unspecified; M54.9 Dorsalgia, unspecified

== ENCOUNTER 2020-02-28 17:12 | Emergency (ER) | payer OTHER ==
[~2020-02-28] VITALS: Ht 185.4 cm; Wt 164.9 kg
[2020-02-28 17:13] VITALS: BP 155/97
[2020-02-28] MEDS ORDERED: ASPE4PAD TOP (17:41)
[2020-02-28] MEDS ORDERED: HYDR-3715 PO (17:41)
[2020-02-28] MEDS ORDERED: ROBA750T4 PO (17:41)
[2020-02-28] MEDS ORDERED: LIDOCAINE 5% (LIDODERM) PATCH TD ONE (17:45)
[2020-02-28] MEDS ORDERED: ACETAMINOPHEN 500 MG TAB PO ONE (17:45)
[2020-02-29] MEDS ORDERED: **NOTE PATIENT COMMENT** MISC XX ONE (06:00)
== END 2020-02-28 18:18 | disposition home or self-care (01) ==
LOC: M ED 17:12
DX: M54.5 Low back pain (principal); Z87.442 Personal history of urinary calculi; Z79.899 Other long term (current) drug therapy

== ENCOUNTER → 2020-04-07 | Outpatient (REF) | payer OTHER, MEDICAID ==
[~2020-04-07] MED LIST changes: +ASPE4PAD TOP; +ROBA750T4 PO
[2020-04-07 12:27] LABS: BASO # 0.1 10^3/uL (0.0-0.2); BASO % 0.8 % (0.0-1.0); EOS # 0.2 10^3/uL (0.0-0.5); EOS % 2.3 % (0.0-3.0); HEMATOCRIT 47.2 % (42.0-52.0); HEMOGLOBIN 15.1 g/dl (13.5-17.5); LYMPH # 3.7 10^3/uL (1.5-5.0); LYMPH % 41.6 % (24.0-44.0); MEAN CORPUSCULAR HEMOGLOBIN 27.4 pg (27.0-33.0); MEAN CORPUSCULAR VOLUME 85.5 fl (80.0-96.0); MONO # 0.9 10^3/uL (0.0-0.8); MONO % 9.8 % (0.0-5.0); NEUTROPHILS % 45.1 % (36.0-66.0); PLATELET COUNT, AUTOMATED 246 10^3/uL (150-450); RED BLOOD COUNT 5.52 10^6/uL (4.30-6.10)
[2020-04-07 12:51] LABS: HEMOGLOBIN A1c 6.1 %
[2020-04-07 13:10] LABS: ALT/SGPT 157 U/L (12-78); BILIRUBIN,TOTAL 0.4 MG/DL (0.2-1.0); BLOOD UREA NITROGEN 15 MG/DL (7-18); CALCIUM LEVEL 9.3 MG/DL (8.5-10.1); CARBON DIOXIDE LEVEL 24 MEQ/L (21-32); CHLORIDE LEVEL 107 MEQ/L (98-107); CHOLESTEROL LEVEL 174 MG/DL (<200); CHOLESTEROL RISK RATIO 3.866 (<5); FREE T4 1.12 NG/DL (0.76-1.46); GLOMERULAR FILTRATION RATE > 60.0 (>60); GLUCOSE, FASTING 101 MG/DL (70-100); HDL CHOLESTEROL 45 MG/DL (>40); LDL CHOLESTEROL 100 MG/DL (<100); NON-HDL-C 129 MG/DL; POTASSIUM SERUM 4.3 MEQ/L (3.5-5.1); SODIUM LEVEL 141 MEQ/L (136-145); TOTAL 25(OH) VITAMIN D 28.3 NG/ML (30.0-100.0); TOTAL PROTEIN 7.5 GM/DL (6.4-8.2); TRIGLYCERIDES LEVEL 144 MG/DL (<150)
== END ==
LOC: M LAB REF 11:40
PROVIDERS: ATTEND Physician Assistant
DX: G47.33 Obstructive sleep apnea (adult) (pediatric) (principal); I10 Essential (primary) hypertension; M51.36 Other intervertebral disc degeneration, lumbar region; Z00.01 Encounter for general adult medical examination with abnormal findings; R73.01 Impaired fasting glucose; Z68.42 Body mass index [BMI] 45.0-49.9, adult; E66.01 Morbid (severe) obesity due to excess calories

== ENCOUNTER → 2020-09-06 | Outpatient (REF) | payer OTHER, MEDICAID ==
[2020-09-06 12:57] LABS: ALBUMIN 3.9 GM/DL (3.2-5.2); ALT/SGPT 125 U/L (12-78); BILIRUBIN,TOTAL 0.4 MG/DL (0.2-1.0); BLOOD UREA NITROGEN 11 MG/DL (7-18); CALCIUM LEVEL 9.8 MG/DL (8.5-10.1); CARBON DIOXIDE LEVEL 27 MEQ/L (21-32); CHLORIDE LEVEL 107 MEQ/L (98-107); CREATININE FOR GFR 0.71 MG/DL (0.70-1.30); FREE T4 0.94 NG/DL (0.76-1.46); GLOMERULAR FILTRATION RATE > 60.0 (>60); GLUCOSE, FASTING 100 MG/DL (70-100); POTASSIUM SERUM 4.5 MEQ/L (3.5-5.1); SODIUM LEVEL 139 MEQ/L (136-145); TOTAL PROTEIN 7.8 GM/DL (6.4-8.2)
[2020-09-06 19:43] LABS: HEMOGLOBIN A1c 5.9 %
== END ==
LOC: M LAB REF 11:10
PROVIDERS: ATTEND Physician Assistant
DX: R94.5 Abnormal results of liver function studies (principal); R73.03 Prediabetes; G47.33 Obstructive sleep apnea (adult) (pediatric); I10 Essential (primary) hypertension; E66.01 Morbid (severe) obesity due to excess calories; Z68.42 Body mass index [BMI] 45.0-49.9, adult

== ENCOUNTER → 2020-12-13 | Outpatient (REF) | payer OTHER, MEDICAID ==
[2020-12-13 16:26] LABS: HEMATOCRIT 46.2 % (42.0-52.0); HEMOGLOBIN 14.9 g/dl (13.5-17.5); MEAN CORPUSCULAR HEMOGLOBIN 27.3 pg (27.0-33.0); MEAN CORPUSCULAR HGB CONC 32.3 g/dl (32.0-36.5); MEAN CORPUSCULAR VOLUME 84.6 fl (80.0-96.0); PLATELET COUNT, AUTOMATED 219 10^3/uL (150-450); RED BLOOD COUNT 5.46 10^6/uL (4.30-6.10); WHITE BLOOD COUNT 7.4 10^3/uL (4.0-10.0)
[2020-12-13 16:59] LABS: HEMOGLOBIN A1c 5.9 %
[2020-12-13 17:08] LABS: ALBUMIN 3.9 GM/DL (3.2-5.2); ALT/SGPT 126 U/L (12-78); BILIRUBIN,TOTAL 0.2 MG/DL (0.2-1.0); BLOOD UREA NITROGEN 12 MG/DL (7-18); CARBON DIOXIDE LEVEL 27 MEQ/L (21-32); CHLORIDE LEVEL 106 MEQ/L (98-107); CREATININE FOR GFR 0.74 MG/DL (0.70-1.30); GLOMERULAR FILTRATION RATE > 60.0 (>60); GLUCOSE, FASTING 101 MG/DL (70-100); POTASSIUM SERUM 4.8 MEQ/L (3.5-5.1); SODIUM LEVEL 140 MEQ/L (136-145); TOTAL PROTEIN 7.4 GM/DL (6.4-8.2)
== END ==
LOC: M LAB REF 16:02
PROVIDERS: ATTEND Physician Assistant
DX: R73.03 Prediabetes (principal); G47.33 Obstructive sleep apnea (adult) (pediatric); R35.1 Nocturia; I10 Essential (primary) hypertension

== ENCOUNTER 2021-01-03 07:29 | Emergency (ER) | payer MEDICAID, OTHER ==
[~2021-01-03] VITALS: Ht 185.4 cm; Wt 170.5 kg
--- NOTE | 2021-01-03 08:50 | REP ---
INDICATION: L foot pain COMPARISON: None. TECHNIQUE: AP, lateral, bilateral oblique views left foot. FINDINGS: The osseous structures and joint spaces are intact and normal. There is no evidence for acute fracture or dislocation. Surrounding soft tissues are unremarkable. No subcutaneous emphysema or radiodense foreign body. IMPRESSION: Unremarkable radiographic evaluation. No acute fracture or dislocation. <Electronically signed by Wan Burns > 01/03/21 [id number]
[2021-01-03 09:36] LABS: BASO % 0.5 % (0.0-1.0); EOS # 0.2 10^3/uL (0.0-0.5); HEMOGLOBIN 15.3 g/dl (13.5-17.5); LYMPH # 2.6 10^3/uL (1.5-5.0); LYMPH % 34.3 % (24.0-44.0); MEAN CORPUSCULAR HEMOGLOBIN 26.8 pg (27.0-33.0); MEAN CORPUSCULAR HGB CONC 31.9 g/dl (32.0-36.5); MEAN CORPUSCULAR VOLUME 84.1 fl (80.0-96.0); MONO # 0.7 10^3/uL (0.0-0.8); MONO % 8.6 % (2.0-8.0); NEUTROPHILS # 4.1 10^3/uL (1.5-8.5); NEUTROPHILS % 54.2 % (36.0-66.0); PLATELET COUNT, AUTOMATED 228 10^3/uL (150-450); RED BLOOD COUNT 5.71 10^6/uL (4.30-6.10); WHITE BLOOD COUNT 7.6 10^3/uL (4.0-10.0)
[2021-01-03 10:07] LABS: BLOOD UREA NITROGEN 10 MG/DL (7-18); CALCIUM LEVEL 9.3 MG/DL (8.5-10.1); CARBON DIOXIDE LEVEL 27 MEQ/L (21-32); CHLORIDE LEVEL 107 MEQ/L (98-107); CREATININE FOR GFR 0.73 MG/DL (0.70-1.30); GLOMERULAR FILTRATION RATE > 60.0 (>60); GLUCOSE, FASTING 109 MG/DL (70-100); POTASSIUM SERUM 4.4 MEQ/L (3.5-5.1); SODIUM LEVEL 138 MEQ/L (136-145); URIC ACID 7.3 MG/DL (3.5-7.2)
[2021-01-03] MEDS ORDERED: NAPR-885 PO (10:14)
[2021-01-03 10:45] VITALS: BP 135/94
== END 2021-01-03 10:47 | disposition home or self-care (01) ==
LOC: M ED 07:29
DX: M79.672 Pain in left foot (principal); E66.9 Obesity, unspecified

== ENCOUNTER 2021-02-10 16:50 | Emergency (ER) | payer OTHER ==
[~2021-02-10] VITALS: Ht 185.4 cm; Wt 170.8 kg
[~2021-02-10 16:50] MED LIST changes: +NAPR-885 PO
[2021-02-10] MEDS ORDERED: LIDOCAINE 2% MDV 20ML VIAL As Ordered ONE (19:48)
[2021-02-10] MEDS ORDERED: LIDOCAINE 2% MDV 20ML VIAL SC ONE (19:50)
[2021-02-10] MEDS ORDERED: CEPHALEXIN 500 MG CAP PO ONE (19:50)
[2021-02-10] MEDS ORDERED: BOOSTRIX/ADACEL VACCINE (DIPHTH/PERTUSS/ACELL/TETANUS) 0.5ML SYR IM ONE (19:50)
[2021-02-10] MEDS ORDERED: CEPH500C PO (20:11)
[2021-02-10 20:21] VITALS: BP 141/81
== END 2021-02-10 20:22 | disposition home or self-care (01) ==
LOC: M ED 16:50
DX: S61.217A Laceration without foreign body of left little finger without damage to nail, initial encounter (principal); W26.8XXA Contact with other sharp object(s), not elsewhere classified, initial encounter; Y99.0 Civilian activity done for income or pay; Y92.9 Unspecified place or not applicable; Y93.9 Activity, unspecified

== ENCOUNTER → 2021-02-14 | Outpatient (REF) | payer OTHER ==
[~2021-02-14] MED LIST changes: +CEPH500C PO
[2021-02-14 17:11] LABS: ALBUMIN 3.8 GM/DL (3.2-5.2); BILIRUBIN,DIRECT 0.1 MG/DL (0.0-0.2); BILIRUBIN,TOTAL 0.3 MG/DL (0.2-1.0); TOTAL PROTEIN 7.2 GM/DL (6.4-8.2)
== END ==
LOC: M LAB REF 15:53
PROVIDERS: ATTEND Pediatrics
DX: R94.5 Abnormal results of liver function studies (principal)

== ENCOUNTER 2021-11-24 22:34 | Emergency (ER) | payer OTHER ==
[~2021-11-24] VITALS: Ht 185.4 cm; Wt 178.1 kg
[2021-11-25] MEDS ORDERED: COLCHICINE 0.6 MG TABLET PO ONE (01:35)
[2021-11-25] MEDS ORDERED: INDOMETHACIN 25 MG CAP PO ONE (01:35)
[2021-11-25] MEDS ORDERED: INDO50CA91 PO (01:36)
[2021-11-25] MEDS ORDERED: COLC0.6T47 PO (01:36)
[2021-11-25 01:57] VITALS: BP 160/65
== END 2021-11-25 01:58 | disposition home or self-care (01) ==
LOC: M ED 22:34
DX: M10.072 Idiopathic gout, left ankle and foot (principal)

== ENCOUNTER 2022-01-30 10:00 | Emergency (ER) | payer OTHER ==
[~2022-01-30] VITALS: Ht 185.4 cm; Wt 176.5 kg
[~2022-01-30 10:00] MED LIST changes: +COLC0.6T47 PO; +INDO50CA91 PO
[2022-01-30 12:05] LABS: BASO # 0.1 10^3/uL (0.0-0.2); BASO % 0.5 % (0.0-1.0); EOS # 0.2 10^3/uL (0.0-0.5); EOS % 1.2 % (0.0-3.0); HEMATOCRIT 46.7 % (42.0-52.0); HEMOGLOBIN 15.5 g/dl (13.5-17.5); LYMPH # 3.3 10^3/uL (1.5-5.0); LYMPH % 24.1 % (24.0-44.0); MEAN CORPUSCULAR HEMOGLOBIN 27.3 pg (27.0-33.0); MEAN CORPUSCULAR HGB CONC 33.2 g/dl (32.0-36.5); MEAN CORPUSCULAR VOLUME 82.4 fl (80.0-96.0); MONO # 1.3 10^3/uL (0.0-0.8); MONO % 9.2 % (2.0-8.0); NEUTROPHILS # 8.8 10^3/uL (1.5-8.5); NEUTROPHILS % 64.6 % (36.0-66.0); PLATELET COUNT, AUTOMATED 249 10^3/uL (150-450); RED BLOOD COUNT 5.67 10^6/uL (4.30-6.10); WHITE BLOOD COUNT 13.6 10^3/uL (4.0-10.0)
[2022-01-30 12:26] LABS: ERYTHROCYTE SEDIMENTATION RATE 22 mm/hr (0-15)
[2022-01-30] MEDS ORDERED: CEPHALEXIN 500 MG CAP PO ONE (13:00)
[2022-01-30] MEDS ORDERED: CEPH500C PO (13:00)
[2022-01-30 13:09] VITALS: BP 129/77
== END 2022-01-30 13:10 | disposition home or self-care (01) ==
LOC: M ED 10:00
DX: L03.116 Cellulitis of left lower limb (principal); M54.9 Dorsalgia, unspecified; M10.9 Gout, unspecified

== ENCOUNTER 2022-02-02 14:02 | Emergency (ER) | payer OTHER ==
[~2022-02-02] VITALS: Ht 185.4 cm; Wt 172.7 kg
[2022-02-02 14:02] VITALS: BP 134/92
[2022-02-02] MEDS ORDERED: ONDANSETRON 4MG ORAL DISINTEGRATING TAB PO ONE (14:30)
[2022-02-02 15:05] LABS: BASO # 0.1 10^3/uL (0.0-0.2); BASO % 0.5 % (0.0-1.0); BLOOD UREA NITROGEN 10 MG/DL (7-18); C REACTIVE PROTEIN QUANTITATIV 2.15 MG/DL (0.00-0.30); CALCIUM LEVEL 9.2 MG/DL (8.5-10.1); CARBON DIOXIDE LEVEL 29 MEQ/L (21-32); CHLORIDE LEVEL 108 MEQ/L (98-107); CREATININE FOR GFR 0.71 MG/DL (0.70-1.30); EOS # 0.2 10^3/uL (0.0-0.5); EOS % 2.2 % (0.0-3.0); GLOMERULAR FILTRATION RATE > 60.0 (>60); GLUCOSE, FASTING 102 MG/DL (70-100); HEMATOCRIT 47.5 % (42.0-52.0); HEMOGLOBIN 15.3 g/dl (13.5-17.5); LYMPH # 2.8 10^3/uL (1.5-5.0); LYMPH % 28.2 % (24.0-44.0); MEAN CORPUSCULAR HEMOGLOBIN 27.1 pg (27.0-33.0); MEAN CORPUSCULAR HGB CONC 32.2 g/dl (32.0-36.5); MEAN CORPUSCULAR VOLUME 84.1 fl (80.0-96.0); MONO # 0.9 10^3/uL (0.0-0.8); MONO % 8.9 % (2.0-8.0); NEUTROPHILS # 5.9 10^3/uL (1.5-8.5); NEUTROPHILS % 59.6 % (36.0-66.0); PLATELET COUNT, AUTOMATED 272 10^3/uL (150-450); POTASSIUM SERUM 4.4 MEQ/L (3.5-5.1); RED BLOOD COUNT 5.65 10^6/uL (4.30-6.10); SODIUM LEVEL 140 MEQ/L (136-145); WHITE BLOOD COUNT 9.9 10^3/uL (4.0-10.0)
[2022-02-02 15:28] LABS: ERYTHROCYTE SEDIMENTATION RATE 10 mm/hr (0-15)
[2022-02-02] MEDS ORDERED: BACT800T5 PO (15:39)
[2022-02-02] MEDS ORDERED: ONDA4TAB6 PO (17:12)
== END 2022-02-02 16:15 | disposition home or self-care (01) ==
LOC: M ED 14:02
DX: L03.116 Cellulitis of left lower limb (principal); R11.0 Nausea

== ENCOUNTER 2022-03-28 13:23 | Emergency (ER) | payer OTHER ==
[~2022-03-28] VITALS: Ht 185.4 cm; Wt 172.7 kg
[2022-03-28 13:23] VITALS: BP 158/107
[~2022-03-28 13:23] MED LIST changes: +BACT800T5 PO
== END 2022-03-28 15:15 | disposition left against medical advice (07) ==
LOC: M ED 13:23
DX: Z53.21 Procedure and treatment not carried out due to patient leaving prior to being seen by health care provider (principal)

== ENCOUNTER → 2022-09-24 | Outpatient (CLI) | payer OTHER | LOC: M RAD 11:14 | PROVIDERS: ATTEND Physician Assistant Medical | DX: M54.50 Low back pain, unspecified (principal) ==

== ENCOUNTER 2022-09-28 17:18 | Emergency (ER) | payer OTHER ==
[~2022-09-28] VITALS: Ht 185.4 cm; Wt 174.1 kg
[2022-09-28] MEDS ORDERED: KETOROLAC 30 MG/ML 1ML VIAL IM ONE (18:35)
[2022-09-28] MEDS ORDERED: ACETAMINOPHEN 325 MG TAB PO ONE (18:35)
[2022-09-28] MEDS ORDERED: KETO10TAB PO (18:37)
[2022-09-28 18:43] VITALS: BP 126/77
== END 2022-09-28 18:52 | disposition home or self-care (01) ==
LOC: M ED 17:18
DX: S39.012A Strain of muscle, fascia and tendon of lower back, initial encounter (principal); M54.31 Sciatica, right side; M54.32 Sciatica, left side; Z79.2 Long term (current) use of antibiotics; Z79.899 Other long term (current) drug therapy
CPT/HCPCS: 96372; 99283; J1885

== ENCOUNTER → 2023-01-01 | Outpatient (REF) | payer OTHER ==
[2023-01-01 16:38] LABS: ALBUMIN 3.7 G/DL (3.2-5.2); ALKALINE PHOSPHATASE 78 U/L (46-116); ALT/SGPT 59 U/L (7.0-40); AST/SGOT 39 U/L (<34); BILIRUBIN,TOTAL 0.7 MG/DL (0.3-1.2); BLOOD UREA NITROGEN 11 MG/DL (9-23); CALCIUM LEVEL 8.8 MG/DL (8.5-10.1); CARBON DIOXIDE LEVEL 29 MMOL/L (20-31); CHLORIDE LEVEL 103 MMOL/L (98-107); CHOLESTEROL LEVEL 161 MG/DL (<200); CHOLESTEROL RISK RATIO 3.92 (<5); CREATININE FOR GFR 0.62 MG/DL (0.70-1.30); GLOMERULAR FILTRATION RATE > 60.0 (>60); GLUCOSE, FASTING 101 MG/DL (60-100); LDL CHOLESTEROL 90.2 MG/DL (<100); NON-HDL-C 120 MG/DL; POTASSIUM SERUM 4.4 MMOL/L (3.5-5.1); SODIUM LEVEL 139 MMOL/L (136-145); TOTAL PROTEIN 6.9 G/DL (5.7-8.2); TRIGLYCERIDES LEVEL 149 MG/DL (<150)
[2023-01-01 16:39] LABS: URIC ACID 9.6 MG/DL (3.7-9.2)
[2023-01-01 16:40] LABS: HEMATOCRIT 45.6 % (42.0-52.0); HEMOGLOBIN 14.5 g/dl (13.5-17.5); MEAN CORPUSCULAR HEMOGLOBIN 27.6 pg (27.0-33.0); MEAN CORPUSCULAR HGB CONC 31.8 g/dl (32.0-36.5); MEAN CORPUSCULAR VOLUME 86.9 fl (80.0-96.0); PLATELET COUNT, AUTOMATED 241 10^3/uL (150-450); RED BLOOD COUNT 5.25 10^6/uL (4.30-6.10)
== END ==
LOC: M LAB REF 16:02
PROVIDERS: ATTEND Physician Assistant
DX: R73.03 Prediabetes (principal); K76.0 Fatty (change of) liver, not elsewhere classified; M10.071 Idiopathic gout, right ankle and foot

== ENCOUNTER → 2023-01-06 | Outpatient (REF) | payer OTHER | LOC: M LAB REF 12:17 | PROVIDERS: ATTEND Physician Assistant | DX: J03.90 Acute tonsillitis, unspecified (principal) ==

== ENCOUNTER → 2023-01-18 | Outpatient (CLI) | payer OTHER ==
[~2023-01-18] MED LIST changes: +HYDR-3713 PO; +PRED10TA2 PO
[2023-01-18 10:51] LABS: BASO # 0.1 10^3/uL (0.0-0.2); BASO % 0.6 % (0.0-1.0); EOS # 0.1 10^3/uL (0.0-0.5); EOS % 1.3 % (0.0-3.0); HEMATOCRIT 45.2 % (42.0-52.0); HEMOGLOBIN 14.8 g/dl (13.5-17.5); LYMPH # 3.4 10^3/uL (1.5-5.0); LYMPH % 40.8 % (24.0-44.0); MEAN CORPUSCULAR HEMOGLOBIN 27.8 pg (27.0-33.0); MEAN CORPUSCULAR HGB CONC 32.7 g/dl (32.0-36.5); MEAN CORPUSCULAR VOLUME 84.8 fl (80.0-96.0); MONO # 0.8 10^3/uL (0.0-0.8); MONO % 9.5 % (2.0-8.0); NEUTROPHILS # 3.9 10^3/uL (1.5-8.5); NEUTROPHILS % 47.4 % (36.0-66.0); PLATELET COUNT, AUTOMATED 239 10^3/uL (150-450); RED BLOOD COUNT 5.33 10^6/uL (4.30-6.10); WHITE BLOOD COUNT 8.2 10^3/uL (4.0-10.0)
[2023-01-18 11:16] LABS: URIC ACID 8.1 MG/DL (3.7-9.2)
[2023-01-18 11:19] LABS: ALBUMIN 3.7 G/DL (3.2-5.2); BLOOD UREA NITROGEN 11 MG/DL (9-23); CARBON DIOXIDE LEVEL 27 MMOL/L (20-31); CHLORIDE LEVEL 105 MMOL/L (98-107); CREATININE FOR GFR 0.64 MG/DL (0.70-1.30); GLOMERULAR FILTRATION RATE > 60.0 (>60); GLUCOSE, FASTING 108 MG/DL (60-100); PHOSPHORUS LEVEL 3.9 MG/DL (2.5-4.9); POTASSIUM SERUM 4.3 MMOL/L (3.5-5.1); SODIUM LEVEL 138 MMOL/L (136-145)
== END ==
LOC: M RAD 10:03
PROVIDERS: ATTEND Physician Assistant
DX: M10.071 Idiopathic gout, right ankle and foot (principal)

== ENCOUNTER 2023-01-20 21:24 | Emergency (ER) | payer OTHER ==
[~2023-01-20] VITALS: Ht 185.4 cm; Wt 171.5 kg
[~2023-01-20 21:24] MED LIST changes: -HYDR-3713 PO; -PRED10TA2 PO
[2023-01-21] MEDS ORDERED: NORCO 5/325MG TABLET (HOME DOSE PACK) PO ONE (00:45)
[2023-01-21] MEDS ORDERED: predniSONE 20 MG TAB PO ONE (00:45)
[2023-01-21] MEDS ORDERED: HYDR-3713 PO (01:02)
[2023-01-21] MEDS ORDERED: PRED10TA2 PO (01:02)
[2023-01-21 01:11] VITALS: BP 134/86
== END 2023-01-21 01:22 | disposition home or self-care (01) ==
LOC: M ED 21:24
DX: M10.071 Idiopathic gout, right ankle and foot (principal); E11.9 Type 2 diabetes mellitus without complications; I10 Essential (primary) hypertension; Z79.1 Long term (current) use of non-steroidal anti-inflammatories (NSAID); Z79.83 Long term (current) use of bisphosphonates; Z79.899 Other long term (current) drug therapy
CPT/HCPCS: 99283; J7512

== ENCOUNTER → 2023-03-06 | Outpatient (CLI) | payer OTHER ==
[~2023-03-06] MED LIST changes: +HYDR-3713 PO; +PRED10TA2 PO
== END ==
LOC: M RAD 15:42
PROVIDERS: ATTEND Physician Assistant
DX: M10.9 Gout, unspecified (principal); M25.471 Effusion, right ankle

== ENCOUNTER → 2024-02-03 | Outpatient (REF) | payer OTHER | LOC: M LAB REF 12:08 | PROVIDERS: ATTEND Physician Assistant | DX: B34.9 Viral infection, unspecified (principal); J02.9 Acute pharyngitis, unspecified ==

== ENCOUNTER 2024-03-11 09:56 | Emergency (ER) | payer OTHER ==
[~2024-03-11] VITALS: Ht 185.4 cm; Wt 160.5 kg
[2024-03-11] MEDS: BOOSTRIX VACCINE (TETANUS/DIPHTH/ACEL. PERTUSSIS) 0.5ML SYR IM ONE (11:27)
[2024-03-11] MEDS: DERMABOND TOPICAL SKIN ADHESIVE TOP ONE (12:17)
[2024-03-11 12:20] VITALS: BP 149/94; TEMP 97.3; O2SAT 98
== END 2024-03-11 12:24 | disposition home or self-care (01) ==
LOC: M ED 09:56
DX: S61.011A Laceration without foreign body of right thumb without damage to nail, initial encounter (principal); W26.0XXA Contact with knife, initial encounter; I10 Essential (primary) hypertension; E11.9 Type 2 diabetes mellitus without complications; F10.10 Alcohol abuse, uncomplicated; Z87.442 Personal history of urinary calculi; Y92.009 Unspecified place in unspecified non-institutional (private) residence as the place of occurrence of the external cause; Y93.89 Activity, other specified; Y99.9 Unspecified external cause status

== ENCOUNTER → 2024-04-07 | Outpatient (REF) | payer OTHER ==
[~2024-04-07] MED LIST changes: +ONDA-282 PO; -ONDA4TAB6 PO
[2024-04-07 18:48] LABS: HEMATOCRIT 43.4 % (42.0-52.0); HEMOGLOBIN 14.1 g/dl (13.5-17.5); MEAN CORPUSCULAR HEMOGLOBIN 27.5 pg (27.0-33.0); MEAN CORPUSCULAR HGB CONC 32.5 g/dl (32.0-36.5); MEAN CORPUSCULAR VOLUME 84.8 fl (80.0-96.0); PLATELET COUNT, AUTOMATED 249 10^3/uL (150-450); RED BLOOD COUNT 5.12 10^6/uL (4.30-6.10); WHITE BLOOD COUNT 7.4 10^3/uL (4.0-10.0)
[2024-04-07 19:02] LABS: HEMOGLOBIN A1c 5.6 % (4.0-6.0)
[2024-04-07 19:05] LABS: URIC ACID 8.6 MG/DL (3.7-9.2)
[2024-04-07 19:09] LABS: ALBUMIN 3.6 G/DL (3.2-5.2); ALKALINE PHOSPHATASE 71 U/L (46-116); ALT/SGPT 48 U/L (7.0-40); AST/SGOT 24 U/L (<34); BILIRUBIN,TOTAL 0.4 MG/DL (0.3-1.2); BLOOD UREA NITROGEN 12 MG/DL (9-23); CARBON DIOXIDE LEVEL 27 MMOL/L (20-31); CHLORIDE LEVEL 108 MMOL/L (98-107); CHOLESTEROL LEVEL 153 MG/DL (<200); CHOLESTEROL RISK RATIO 3.68 (<5); CREATININE FOR GFR 0.62 MG/DL (0.70-1.30); GLOMERULAR FILTRATION RATE > 60.0 (>60); GLUCOSE, FASTING 110 MG/DL (60-100); HDL CHOLESTEROL 41.5 MG/DL (>40); LDL CHOLESTEROL 84.3 MG/DL (<100); NON-HDL-C 111.5 MG/DL; POTASSIUM SERUM 4.6 MMOL/L (3.5-5.1); SODIUM LEVEL 142 MMOL/L (136-145); TOTAL PROTEIN 6.5 G/DL (5.7-8.2); TRIGLYCERIDES LEVEL 136 MG/DL (<150)
== END ==
LOC: M LAB REF 16:29
PROVIDERS: ATTEND Physician Assistant
DX: I10 Essential (primary) hypertension (principal); R73.03 Prediabetes; M10.071 Idiopathic gout, right ankle and foot

== ENCOUNTER → 2025-06-10 | Outpatient (REF) | payer OTHER ==
[~2025-06-10] MED LIST changes: -FLOM0.4C39 PO; +TAMS-18 PO
== END ==
LOC: M LAB REF 16:55
PROVIDERS: ATTEND Physician Assistant
DX: N39.0 Urinary tract infection, site not specified (principal)

== ENCOUNTER → 2025-07-21 | Outpatient (REF) | payer OTHER ==
[~2025-07-21] MED LIST changes: -COLC0.6T47 PO; +COLC0.6T53 PO
[2025-07-21 19:44] LABS: ALT/SGPT 50 U/L (7.0-40); AST/SGOT 35 U/L (<34); CALCIUM LEVEL 9.2 MG/DL (8.5-10.1); CARBON DIOXIDE LEVEL 29 MMOL/L (20-31); CHLORIDE LEVEL 103 MMOL/L (98-107); CHOLESTEROL LEVEL 164 MG/DL (<200); CHOLESTEROL RISK RATIO 3.77 (<5); CREATININE FOR GFR 0.64 MG/DL (0.70-1.30); GLOMERULAR FILTRATION RATE > 90.0 (>60); LDL CHOLESTEROL 92.2 MG/DL (<100); NON-HDL-C 120.6 MG/DL; POTASSIUM SERUM 4.7 MMOL/L (3.5-5.1); SODIUM LEVEL 140 MMOL/L (136-145); TRIGLYCERIDES LEVEL 142 MG/DL (<150)
== END ==
LOC: M LAB REF 18:45
PROVIDERS: ATTEND Physician Assistant
DX: K76.0 Fatty (change of) liver, not elsewhere classified (principal)